=== PATIENT | female | born 1965 | race Caucasian/White ===

== ENCOUNTER 2023-05-25 06:10 | Day surgery (SDC) | payer BC ==
[~2023-05-25 06:10] MED LIST: Sodium Chloride 0.9% 10 ML Syringe FLUSH PRN; Sodium Chloride 0.9% 10 ML Syringe FLUSH SCH
[2023-05-25] MEDS ORDERED: ceFAZolin 2 GM Vial ONE (06:13)
[2023-05-25] MEDS ORDERED: fentaNYL 100 MCG/2 ML SDV ONE (06:13)
[2023-05-25] MEDS ORDERED: Ketorolac 30 MG/ML SDV ONE (06:13)
[2023-05-25] MEDS ORDERED: Ondansetron 4 MG/2 ML SDV ONE (06:13)
[2023-05-25] MEDS ORDERED: Propofol 200 MG/20 ML SDV ONE (06:13)
[2023-05-25] MEDS ORDERED: Lactated Ringers 1,000 ML ONE ×2 (06:13→08:00)
[2023-05-25] MEDS ORDERED: Ketamine 200 MG/20 ML MDV ONE (06:14)
[2023-05-25] MEDS ORDERED: Midazolam 1 MG/ML 2 ML SDV ONE (06:14)
[2023-05-25] MEDS: Lactated Ringers 1,000 ML IV SCH (06:30)
[2023-05-25] MEDS ORDERED: Phenylephrine 1% 10 MG/ML SDV ONE (07:13)
[2023-05-25] MEDS ORDERED: Lidocaine 1% 2 ML ONE (07:14)
[2023-05-25] MEDS ORDERED: ePHEDrine 50 MG/ML SDV IVPUSH PRN (07:36)
[2023-05-25] MEDS ORDERED: diphenhydrAMINE 50 MG/ML SDV IVPUSH PRN (07:36)
[2023-05-25] MEDS ORDERED: Midazolam 1 MG/ML 2 ML SDV IVPUSH PRN (07:36)
[2023-05-25] MEDS ORDERED: HYDROmorphone 0.5 MG/0.5 ML Syringe IVPUSH PRN (07:36)
[2023-05-25] MEDS ORDERED: fentaNYL 100 MCG/2 ML SDV IVPUSH PRN (07:36)
[2023-05-25] MEDS ORDERED: Phenylephrine 1% 10 MG/ML SDV IV PRN (07:36)
[2023-05-25] MEDS ORDERED: Ondansetron 4 MG/2 ML SDV IVPUSH PRN (07:36)
[2023-05-25] MEDS: Morphine 8 MG, EPINEPHrine 0.3 MG, Cefuroxime 750 MG, Ketorolac 30 MG, Sodium Chloride ... PRN (08:06)
[2023-05-25] MEDS: Tranexamic Acid 1,000 MG/10 ML Vial ONE (08:07)
[2023-05-25] MEDS: Vancomycin 1 GM SDV ONE (08:07)
[2023-05-25] MEDS: Acetaminophen/HYDROcodone 325-5 MG Tab PO PRN (11:24)
[2023-05-25] MEDS: Cyclobenzaprine 10 MG Tab PO PRN (14:16)
== END 2023-05-25 14:50 | disposition home or self-care (01) ==
LOC: JD.SDS 06:10
PROVIDERS: ATTEND Orthopaedic Surgery
DX: M16.11 Unilateral primary osteoarthritis, right hip (principal); K21.9 Gastro-esophageal reflux disease without esophagitis; E87.1 Hypo-osmolality and hyponatremia; R35.0 Frequency of micturition; K22.70 Barrett's esophagus without dysplasia; G62.9 Polyneuropathy, unspecified; R73.01 Impaired fasting glucose; R53.83 Other fatigue; Z79.82 Long term (current) use of aspirin; Z79.899 Other long term (current) drug therapy
CPT/HCPCS: 01214; 36415; 73501-26-RT; 73501-RT; 86850; 86900; 86901; 97110-GP; 97161-GP; A9270-GY; C1713; C1776; J0171; J0690; J0697; J1885; J2250; J2270; J2371; J2405; J2704; J3010; J3370; J3490; J7030; J7120

== ENCOUNTER 2025-03-15 12:21 | Emergency (ER) | payer BC ==
[2025-03-15] MEDS ORDERED: Sodium Chloride 0.9% 10 ML Syringe FLUSH PRN (13:12)
[2025-03-15 13:55] LABS: BASOPHILS ABSOLUTE AUTO 0.0 K/mm3 (0.0-0.2); BASOPHILS PERCENT AUTO 0.2 % (0.0-1.0); EOSINOPHILS ABSOLUTE AUTO 0.0 K/mm3 (0.0-0.4); EOSINOPHILS PERCENT AUTO 0.2 % (0.0-6.0); IMMATURE GRAN ABSOLUTE AUTO 0.02 K/mm3 (0.00-0.05); IMMATURE GRAN PERCENT AUTO 0.2 % (0.0-0.4); LYMPHOCYTES ABSOLUTE AUTO 1.1 K/mm3 (1.0-4.8); LYMPHOCYTES PERCENT AUTO 12.9 % (24.0-44.0); MEAN PLATELET VOLUME 9.4 fl (9.4-12.3); MONOCYTES ABSOLUTE AUTO 1.0 K/mm3 (0.0-0.8); MONOCYTES PERCENT AUTO 11.2 % (0.0-8.0); NEUTROPHILS ABSOLUTE AUTO 6.4 K/mm3 (1.8-7.7); NEUTROPHILS PERCENT AUTO 75.3 % (41.0-71.0); NRBC ABSOLUTE 0.00 (0.00-0.02); NRBC PERCENT 0.0 % (0.0-0.2); PLATELET COUNT,PLT 176 K/mm3 (150-400); RED BLOOD CELL COUNT 3.95 M/mm3 (4.10-5.30); WHITE BLOOD CELL COUNT,WBC 8.52 K/mm3 (3.9-11.3)
[2025-03-15 14:31] LABS: CORONAVIRUS COVID-19 NAA POSITIVE (NEGATIVE); INFLUENZA A NAA NEGATIVE (NEGATIVE); RESPIRATORY SYNCYTIAL VIR NAA NEGATIVE (NEGATIVE)
[2025-03-15 14:32] LABS: A/G RATIO 1.3 (1-2); ALANINE AMINOTRANSFERASE,ALT 25 U/L (14-59); ASPARTATE AMNIOTRANSFERASE,AST 18 U/L (15-37); BILIRUBIN TOTAL 0.4 mg/dL (0.2-1.0); BLOOD UREA NITROGEN,BUN 20 mg/dL (7-18); CARBON DIOXIDE,CO2 27 mEq/L (21-32); CHLORIDE,CL 98 mEq/L (98-107); CREATININE 0.8 mg/dL (0.55-1.02); EST CRCL DRUG DOSING (CG) 61.86 mL/min; ESTIMATED GFR 84 mL/min (>60); GLUCOSE RANDOM 93 mg/dL (70-99); POTASSIUM,K 3.8 mEq/L (3.5-5.1); PROTEIN TOTAL,TP 6.4 g/dl (6.4-8.2); SODIUM,NA 133 mEq/L (136-145); TSH 0.818 uIU/mL (0.358-3.74)
[2025-03-15 14:33] LABS: TROPONIN I HIGH SENSITIVITY < 4 pg/mL (<=51)
== END 2025-03-15 15:26 | disposition home or self-care (01) ==
LOC: JD.ED 12:21
DX: R55 Syncope and collapse (principal); U07.1 COVID-19; Z79.82 Long term (current) use of aspirin; Z79.899 Other long term (current) drug therapy
CPT/HCPCS: 36415; 70450; 80053; 83735; 84443; 84484; 85025; 87637; 93005; 96360; 99284; J7030; 93010